=== PATIENT | male | born 1985 | race Caucasian/White ===

== ENCOUNTER 2020-07-20 03:03 | Emergency (ER) | payer OTHER ==
[~2020-07-20] VITALS: Ht 172.7 cm; Wt 99.8 kg
--- NOTE | 2020-07-20 03:11 | NUR ---
Patient BIB [facility] for c/o of Rt lower back pain. Pt states he was going to prepare a bottle for his baby when he slipped on some stairs and hit his Rt lower back area. Pt placed in [facility]. NAD noted. Awaiting MD cristobal. Addendum: 07/20/20 at 0451 by NGUYEN Pt noted to be able to move hip and lower extremity. No deformity noted.
--- NOTE | 2020-07-20 03:25 | NUR ---
20g to Lt AC inserted by rescue ambulance Addendum: 07/20/20 at 0334 by ELEIVA IV patent and flushing well
[2020-07-20] MEDS: ONDANSETRON 4 MG/2 ML VIAL IV ONE (03:28)
[2020-07-20] MEDS ORDERED: HYDROMORPHONE 1 MG/1 ML DISP.SYRIN ONE (03:30)
[2020-07-20] MEDS ORDERED: ONDANSETRON 4 MG/2 ML VIAL ONE (03:31)
[2020-07-20] MEDS: HYDROMORPHONE 1 MG/1 ML DISP.SYRIN IV ONE (03:32)
--- NOTE | 2020-07-20 03:44 | NUR ---
pt taken to CT
--- NOTE | 2020-07-20 03:55 | NUR ---
pt back from CT
[2020-07-20] MEDS ORDERED: HYDR-3980 PO (04:36)
--- NOTE | 2020-07-20 04:44 | NUR ---
Per Dr. Henderson, pt stable for discharge. DC instructions and rx given and reviewed with patient. Verbalized understanding. IV dc'd noted with tip intact. Left ER in stable condition.
--- NOTE | 2020-07-21 09:44 | NUR ---
PATIENT WAS GIVEN A COPY OF CD WITH ALL CT IMAGES AND A COPY OF THE RADIOLOGIST REPORT.
== END 2020-07-20 04:46 | disposition home or self-care (01) ==
LOC: ER 03:06
DX: S79.911A Unspecified injury of right hip, initial encounter (principal); M25.551 Pain in right hip; W10.9XXA Fall (on) (from) unspecified stairs and steps, initial encounter; Y92.019 Unspecified place in single-family (private) house as the place of occurrence of the external cause
CPT/HCPCS: 72192; 96374; 96375; 99284; J1170; J2405; A4663